=== PATIENT | male | born 1980 | race Hispanic/Latino ===

== ENCOUNTER 2018-12-04 13:00 | Day surgery (SDC) | payer OTHER ==
[2018-12-02 07:53] VITALS: BMI 25.0
[2018-12-04] MEDS ORDERED: Lactated Ringer's 1,000 ML IV ONE (13:44)
[2018-12-04] MEDS ORDERED: Bupivacaine 0.5% Inj(30mL) ONE (16:32)
[2018-12-04] MEDS ORDERED: Midazolam 2 MG/2 ML VIAL ONE (16:52)
[2018-12-04] MEDS ORDERED: Propofol 10 mg/ml Inj (20 ML) ONE (16:52)
[2018-12-04] MEDS ORDERED: Lidocaine 2% Inj (20ml) IJ ONE ×2 (17:08)
[2018-12-04] MEDS ORDERED: Sevoflurane - Inhalation Anesthetic Liq (250 ml) ONE (17:13)
[2018-12-04] MEDS ORDERED: Bacitracin Ointment 30 GM TUBE ONE (17:53)
[2018-12-04] MEDS ORDERED: HYDROmorphone 0.5 mg/0.5 ml ISec IVP PRN (18:08)
[2018-12-04] MEDS ORDERED: Lactated Ringer's 1,000 ML IV SCH (18:15)
[2018-12-04 22:47] VITALS: BP 124/80; PULSE 67; RESP 18; TEMP 98; O2SAT 95
--- NOTE | 2018-12-05 04:33 | OP ---
PROCEDURE DATE: 12/04/2018 INDICATIONS: Mr. Cook is a 38-year-old male who presented to my office with complaints of phimosis and irritation of the glans penis. I could not retract his foreskin in the office, and the glans appeared markedly inflamed. He was prescribed betamethasone and antifungal cream for four week and was counseled to have circumcision. He is brought today for circumcision. PREOPERATIVE DIAGNOSES: Phimosis and balanoposthitis. POSTOPERATIVE DIAGNOSES: Phimosis and balanoposthitis. PROCEDURE: Circumcision and frenulum reconstruction. ESTIMATED BLOOD LOSS: Minimal. ANESTHESIA: General. SURGEON: Eladio Orellana M.D. BAR SUPERVISOR: Dr. Wolff. DESCRIPTION OF PROCEDURE: The patient was brought to the operating room, placed in supine position. General anesthesia was administered. We then prepped and draped the patient in usual sterile fashion. We called a time-out, verifying the patient's name, procedure, antibiotics, and allergies; and proceeded to make a paroxysmal incision on the foreskin down to the level of the fascia. The foreskin was unable to be reduced at this time. Therefore dorsal clip was made on the dorsal part of the foreskin. The foreskin was reduced, and to our surprise, the glans penis and foreskin were markedly inflamed with a concern for carcinoma of the penis. Therefore, circumcising incision was made on the distal end of the foreskin. The foreskin was removed and sent to pathology for an immediate frozen section. Some desquamating skin from the glans penis was also removed and this was sent to Pathology as a second biopsy of the glans penis again to rule out carcinoma. Once this was done, we reconstructed the frenulum and using 3-0 Vicryl. The proximal and distal ends of the foreskin was then re-approximated using 2-0 Vicryl. As the skin appeared markedly unhealthy, I felt that using heavier suture, would allow the foreskin to heal better. Reasonable cosmetic result was achieved. The penis and suture line were heavily applied with bacitracin ointment, Dotty, Coban, and Xeroform dressing were applied. The patient was awakened from anesthesia and transferred to recovery room in good, stable condition. The patient will follow up in several weeks for routine followup. The patient was instructed no sex for 6 weeks while the sutures are in, no bathing in the ocean or swimming, was given pain medication and discharge instruction. Of note, 0.5% Marcaine and 2% lidocaine without epinephrine were used for penile block at the beginning of the procedure prior to excision. Eladio Orellana M.D.
== END 2018-12-04 22:00 | disposition home or self-care (01) ==
LOC: H.OPSURG 13:00 → H.MEDSURG1 20:20 → H.OPSURG 22:00
PROVIDERS: ATTEND Urology
DX: N47.1 Phimosis (principal); N47.6 Balanoposthitis
CPT/HCPCS: 54161; 88304; 88305; J0690; J2001; J2250; J2704; J3010; J7120